=== PATIENT | male | born 1970 | race Caucasian/White ===

== ENCOUNTER 2021-02-16 06:00 | Emergency (ER) | payer SELFPAY ==
[~2021-02-16] VITALS: Ht 162.6 cm; Wt 82.0 kg
[2021-02-16] MEDS ORDERED: LIDOCAINE HCL/PF 1% 10 MG/ML 5ML VIAL INFIL ONE (06:45)
[2021-02-16 07:18] VITALS: BP 140/80
== END 2021-02-16 07:22 | disposition home or self-care (01) ==
LOC: ER 06:00
DX: S61.411A Laceration without foreign body of right hand, initial encounter (principal); W26.8XXA Contact with other sharp object(s), not elsewhere classified, initial encounter; Y93.89 Activity, other specified; Y92.018 Other place in single-family (private) house as the place of occurrence of the external cause
CPT/HCPCS: 12002; 99282; J3490; Z7610